=== PATIENT | male | born 1970 | race Caucasian/White ===

== ENCOUNTER 2016-12-18 20:48 | Emergency (ER) | payer OTHER ==
[~2016-12-18 20:48] MED LIST: ALBUTEROL17 GM INH; ANTIFUNGAL30 G2 TOP; ANTISEPTIC SKI237 ML TP; BACTRIM DS TABL1 TA2 PO; BACTROBAN22 GM EXT; ELIMITE60 G1 TOP; METHADONE PO; NO MEDICATIONS; PEGASYS; VOLTAREN75 MG PO; ZITHROMAX PO
== END 2016-12-19 00:50 | disposition left against medical advice (07) ==
LOC: CED 20:48
DX: Z53.21 Procedure and treatment not carried out due to patient leaving prior to being seen by health care provider (principal)